=== PATIENT | male | born 1975 | race Caucasian/White ===

== ENCOUNTER 2018-04-11 01:09 | Observation (INO) | payer OTHER ==
[~2018-04-11] VITALS: Ht 170.2 cm; Wt 95.3 kg
[2018-04-11 01:31] VITALS: Ht 170.2 cm; Wt 95.3 kg
[2018-04-11 02:25] LABS: CALCIUM 8.9 mg/dL (8.5-10.1); CARBON DIOXIDE 26.8 mmol/L (21-32); CHLORIDE SERUM 104 mmol/L (98-107); CREATININE SERUM 0.7 mg/dL (0.7-1.3); GFR1 > 60 mL/min; GLUCOSE SERUM 93 mg/dL (74-106); POTASSIUM SERUM 4.1 mmol/L (3.5-5.1); SODIUM SERUM 141 mmol/L (136-145)
[2018-04-11 02:30] LABS: ALBUMIN 3.6 g/dL (3.4-5.0); ALKALINE PHOSPHATASE 83 U/L (46-116); ALT/SGPT 23 U/L (16-63); AST/SGOT 20 U/L (15-37); BILIRUBIN TOTAL 0.39 mg/dL (0.20-1.00); TOTAL PROTEIN, SERUM 7.3 g/dL (6.4-8.2)
[2018-04-11] MEDS ORDERED: GLIPIZIDE ER2.5 M1 PO (02:48)
[2018-04-11] MEDS ORDERED: LIPI20 PO (02:48)
[2018-04-11] MEDS ORDERED: PRINIVIL10 MG PO (02:49)
[2018-04-11] MEDS ORDERED: VERAPAMIL HCL180 M1 PO (02:49)
[2018-04-11] MEDS ORDERED: HALOPERIDOL5 MG PO (02:50)
[2018-04-11] MEDS ORDERED: MIRTAZAPINE15 M2 PO (02:50)
[2018-04-11] MEDS ORDERED: FLUOXETINE40 MG PO (02:51)
[2018-04-11 02:57] LABS: BASOPHIL % 0.3 % (0-2); PLATELET COUNT 275 x10^3mcL (130-400); RED CELL DISTRIBUTION WIDTH 14.4 % (11.5-14.5)
[2018-04-11 04:40] LABS: MAGNESIUM 1.9 mg/dL (1.8-2.4)
[2018-04-11 04:41] VITALS: BP 113/66
[2018-04-11 04:44] VITALS: BP 113/66
[2018-04-11 05:01] LABS: CHOLESTEROL/HDL RATIO 2.1
[2018-04-11 05:02] LABS: microscopic required? NO
[2018-04-11 05:24] LABS: UA SPECIFIC GRAVITY <=1.005 (1.005-1.035); urine erythrocyte NEGATIVE (NEGATIVE)
[2018-04-11 05:37] LABS: AMPHETAMINE QUAL UR NONE DETECTED (NEG <=1000)
[2018-04-11 09:49] VITALS: BP 145/87
[2018-04-11 13:31] VITALS: BP 113/64
[2018-04-11 21:02] VITALS: BP 112/59
[2018-04-12 05:42] VITALS: BP 146/80
[2018-04-12 05:56] LABS: CALCIUM 8.7 mg/dL (8.5-10.1); CARBON DIOXIDE 28.8 mmol/L (21-32); CHLORIDE SERUM 104 mmol/L (98-107); CREATININE SERUM 0.6 mg/dL (0.7-1.3); GFR1 > 60 mL/min; GLUCOSE SERUM 116 mg/dL (74-106); POTASSIUM SERUM 4.6 mmol/L (3.5-5.1); SODIUM SERUM 142 mmol/L (136-145)
[2018-04-12 06:09] LABS: BASOPHIL % 0.3 % (0-2); PLATELET COUNT 273 x10^3mcL (130-400)
[2018-04-12 06:56] LABS: RED CELL DISTRIBUTION WIDTH 14.8 % (11.5-14.5)
[2018-04-12 09:43] VITALS: BP 126/84
[2018-04-12 14:02] VITALS: BP 110/60
[2018-04-12 17:45] VITALS: BP 110/60
[2018-04-12 18:04] VITALS: BP 122/63
== END 2018-04-12 19:45 | disposition other institution (70) | DRG 303 ==
LOC: ED 01:09 → DU 04:01
PROVIDERS: Emergency Medicine; Internal Medicine
DX: I25.110 Atherosclerotic heart disease of native coronary artery with unstable angina pectoris (principal); I10 Essential (primary) hypertension; E11.9 Type 2 diabetes mellitus without complications; K74.60 Unspecified cirrhosis of liver; Z68.36 Body mass index [BMI] 36.0-36.9, adult
CPT/HCPCS: 82962; 83880; A9500; G0378; J2785; Q0092